=== PATIENT | male | born 1975 | race Caucasian/White ===

== ENCOUNTER 2017-02-11 17:14 | Emergency (ER) | payer BC ==
[2017-02-11 17:34] VITALS: BP 127/74
--- OUTSIDE RECORDS SUMMARY | 2017-02-11 17:46 | XMS REPORT | Clinical Summary ---
:1975 Author Organization [facility] [place] [address] Care Team Providers Name Role Phone Unavailable Primary Care Provider Unavailable Source Comments This disclosure is being made pursuant to the [employer] program and maynot contain all information available regarding this patient.[facility] Allergies Not on File Current Medications Be aware that medications may not be up to date as of this document. Alwaysverify current medications with the patient. Not on file Active Problems Not on file Social History Tobacco Use Types Packs/Day Years Used Date Never Assessed Sex Assigned at Date Recorded Not on file Last Filed Vital Signs Not on file Plan of Treatment Health Maintenance Due Date Last Done Comments Retired-Pertussis Vaccine Adult 1994 Retired-Tetanus Vaccine Adult 1994 Retired-INFLUENZA VACCINE 03/08/2015 Results Not on filefrom Last 3 Months
--- NOTE | 2017-02-11 18:03 | ERNOTE ---
Psychological HPI - Date Date of Service: 02/11/17 - General Chief Complaint: Anxiety Source: Reports: patient, RN notes reviewed, past records Exam Limitations: Reports: no limitations - Immun/Allergies/Home Medications Allergies/Adverse Reactions: Allergies No Known Allergies Allergy (Unverified 02/11/17 17:28) Home Medications: HOME MEDICATIONS clonazePAM [Klonopin] 2 mg PO Q8H PRN #4 tablet 02/11/17 [Last Taken Unknown] - History of Present Illness Narrative: 41 y/o male ambulatory to the ED for problems with Xanax abuse. He stopped taking Xanax abruptly a while ago. He suffered withdrawal symptoms that included seizures. He then went through a rehab program and was off of the medication for 30 days. After returning home, he found some leftover Xanax and started taking it again. He has been taking 10 mg a day for the past 10 days. His parents found out and are very upset. He contacted the psychiatry clinic today and completed their new patient paperwork so that he can be seen there. He reports being given Klonopin when he was gradually taken off of Xanax in the past. Time Seen by Provider: 02/11/17 17:40 Review of Systems - Review of Systems Constitutional: Absent: recent illness, fever, chills, malaise EYE: Present: no symptoms reported ENT: Present: no symptoms reported Respiratory: Absent: shortness of breath, cough Cardiology: Absent: chest pain, palpitations, syncope Gastrointestinal/Abdominal: Absent: vomiting, diarrhea, abdominal pain Genitourinary: Present: no symptoms reported Musculoskeletal: Present: no symptoms reported Skin: Present: no symptoms reported Neurological: Absent: headache, dizziness/light-headedness, weakness Endocrine: Present: no symptoms reported Hematologic/Lymphatic: Present: no symptoms reported Psych: Present: anxiety, emotional problems - Patient's Past Medical History Patient History - Medical: Anxiety, Depression Patient History - Cardiac/Respiratory: No pertinent hx Patient History - Cancer: No Hx of Cancer Patient History - Surgical Procedures: Back Surgery, T & A Patient History - Other: None - Social History Living Situations: home Abuse History: Hx of Substance Use, Hx -Substance Use Tx Psych History: Hx of Anxiety, Hx of Depression, Current tx/ever been on anti- depressants or anti-anxiety meds Smoking Status: Never smoker Have you smoked in the past 12 months: No Do you dip or chew tobacco: No Alcohol Use: none Drug Use: benzodiazepine - Immunizations Immunizations Up to Date: Yes Hx Pneumococcal Vaccination: No History of Influenza Vaccine: No Physical Exam - Physical Exam General Appearance: Present: wd/wn, alert, no apparent distress, other - Pleasant, appropriately dressed and groomed Head Exam: Present: normal inspection Neck: Present: normal inspection, nontender, supple Respiratory: Present: no respiratory distress, normal breath sounds, no accessory muscle use, lungs clear Cardiovascular/Chest: Present: regular rate, rhythm, no murmur Neurological Exam: Present: alert, oriented, normal mood/affect, no motor/ sensory deficits Skin Exam: Present: normal color, warm/dry ED Progress - Vital Signs Patient's Vital Signs:: I have reviewed the patient's vital signs. Vital Signs: Vital Signs 02/11/17 02/11/17 17:25 17:41 Temperature 36.1 C L Pulse Rate 55 L 55 L Respiratory 16 Rate Blood Pressure 127/74 O2 Sat by Pulse 99 Oximetry - Progress/Reassessment Chief Complaint: Anxiety Progress:: Unchanged Plan - Plan Plan: Contacted Dr. Jimenez regarding patient. Will give 4mg Klonopin now. Patient is to contact the psychiatry office tomorrow morning to see Dr. Jimenez for follow up in the office tomorrow afternoon. Departure Clinical Impression: Benzodiazepine abuse, episodic - Departure Disposition: Home Follow Up Needed Condition: Stable Instructions: Benzodiazepine Withdrawal Additional Instructions: Contact psychiatry tomorrow morning - Tell them Dr. Jimenez wants to see you after his 2:30 patient. If you have any problems you can contact him at [phone] Referrals: Sona Jimenez MD [Staff Physician] - Prescriptions: clonazePAM [Klonopin] 2 mg PO Q8H PRN #4 tablet PRN Reason: Anxiety
[2017-02-11] MEDS ORDERED: clonazePAM 1 MG TABLET PO ONE (19:30)
== END 2017-02-11 19:12 | disposition home or self-care (01) ==
LOC: ER 17:14
DX: F19.10 Other psychoactive substance abuse, uncomplicated (principal)